=== PATIENT | male | born 1960 | race Caucasian/White ===

== ENCOUNTER 2024-03-29 00:08 | Emergency (ER) | payer OTHER ==
[~2024-03-29] VITALS: Ht 180.3 cm; Wt 65.9 kg
[2024-03-29 00:19] VITALS: TEMP 99.3
[2024-03-29 01:48] LABS: COVID AG,FIA SOURCE NASAL SWAB
[2024-03-29] MEDS: ACETAMINOPHEN 325 MG TABLET PO ONE (01:53)
[2024-03-29 01:56] LABS: BASOPHILS % (AUTO) 0.7 % (0.0-2.0); EOSINOPHILS % (AUTO) 1.3 % (1.0-6.0); HEMOGLOBIN 14.1 g/dL (13.5-17.5); LYMPHOCYTES # (AUTO) 0.6 K/uL (1.0-4.8); LYMPHOCYTES % (AUTO) 5.9 % (22.0-44.0); MEAN CORPUSCULAR HEMOGLOBIN 31.3 pg (26.0-34.0); MEAN CORPUSCULAR HGB CONC 33.5 G/dL (31.0-37.0); MEAN CORPUSCULAR VOLUME 93 fL (80-100); NEUTROPHILS # (AUTO) 7.9 K/uL (1.8-7.7); NEUTROPHILS % (AUTO) 82.1 % (40.0-70.0); PLATELET COUNT (AUTO) 205 K/uL (150-450); RED CELL DISTRIBUTION WIDTH 13.2 % (11.5-14.5); WHITE BLOOD COUNT (AUTO) 9.6 K/uL (4.5-11.0)
[2024-03-29 02:03] LABS: APPEARANCE,URINE CLEAR (CLEAR); BILIRUBIN,URINE NEGATIVE (NEGATIVE); COLOR,URINE LIGHT YELLOW (YELLOW); GLUCOSE, URINE (UA) NEGATIVE (NEGATIVE); KETONES,URINE NEGATIVE (NEGATIVE); LEUKOCYTE ESTERASE ,URINE NEGATIVE (NEGATIVE); NITRATE,URINE NEGATIVE (NEGATIVE); OCCULT BLOOD,URINE NEGATIVE (NEGATIVE); PH,URINE 6.5 (5.0-8.0); PH,URINE DRUG SCREEN 6.5 (5.0-8.0); PROTEIN,URINE NEGATIVE (NEGATIVE); SPECIFIC GRAVITIY, URINE 1.019 (1.003-1.030); UROBILINOGEN,URINE <=1.0 mg/dL (<=1.0)
[2024-03-29 02:03] LABS: ANION GAP 10 mmol/L (8-16); CALCIUM, TOTAL 8.7 mg/dL (8.8-10.5); CARBON DIOXIDE 30 mmol/L (22-29); CHLORIDE 100 mmol/L (98-107); CREATININE 1.05 mg/dL (0.60-1.30); GLOMERULAR FILTR. RATE CALC > 60 mL/min (>60); GLUCOSE,RANDOM 99 mg/dL (70-110); POTASSIUM 4.1 mmol/L (3.5-5.1); SODIUM SERUM 140 mmol/L (136-145); UREA NITROGEN, BLOOD 19 mg/dL (7-18)
[2024-03-29 02:05] LABS: INFLUENZA TYPE A NEGATIVE FOR TYPE A (NEGATIVE); INFLUENZA TYPE B NEGATIVE FOR TYPE B (NEGATIVE)
[2024-03-29 02:06] LABS: SARS-COV2 (COVID) ANTIGEN,FIA Negative (Negative)
[2024-03-29 02:09] LABS: ALCOHOL, URINE DRUG SCREEN NEGATIVE (NEGATIVE); AMPHET/METH SCREEN,URINE NEGATIVE (NEGATIVE); BARBITURATE SCREEN, URINE NEGATIVE (NEGATIVE); BENZODIAZEPINES SCREEN,URINE NEGATIVE (NEGATIVE); CANNABINOID SCREEN,URINE POSITIVE (NEGATIVE); COCAINE SCREEN,URINE NEGATIVE (NEGATIVE); METHADONE SCREEN, URINE NEGATIVE (NEGATIVE); OPIATE SCREEN,URINE NEGATIVE (NEGATIVE); PHENCYCLIDINE SCREEN,URINE NEGATIVE (NEGATIVE)
[2024-03-29] MEDS ORDERED: AMOX250C4 PO (02:40)
[2024-03-29 02:45] VITALS: BP 138/88; PULSE 94; RESP 16; O2SAT 97
== END 2024-03-29 03:05 | disposition home or self-care (01) ==
LOC: EMS 00:14
DX: J32.9 Chronic sinusitis, unspecified (principal); F12.90 Cannabis use, unspecified, uncomplicated; F14.90 Cocaine use, unspecified, uncomplicated; F15.90 Other stimulant use, unspecified, uncomplicated; R44.0 Auditory hallucinations; Z20.822 Contact with and (suspected) exposure to COVID-19
CPT/HCPCS: 80048; 80307; 81003; 85025; 87804; 99283

== ENCOUNTER 2024-03-29 13:51 | Emergency (ER) | payer OTHER ==
[~2024-03-29] VITALS: Ht 180.3 cm; Wt 66.0 kg
[~2024-03-29 13:51] MED LIST: AMOX250C4 PO
[2024-03-29 13:54] VITALS: BP 121/85; PULSE 111; RESP 16; TEMP 98.5; O2SAT 99
== END 2024-03-29 17:48 | disposition home or self-care (01) ==
LOC: EMS 13:51
DX: E86.0 Dehydration (principal); F12.90 Cannabis use, unspecified, uncomplicated; F14.90 Cocaine use, unspecified, uncomplicated; F15.90 Other stimulant use, unspecified, uncomplicated; Z91.199 Patient's noncompliance with other medical treatment and regimen due to unspecified reason; Z59.01 Sheltered homelessness
CPT/HCPCS: 99281; Z7502